=== PATIENT | male | born 1955 | race Native Hawaiian/Other Pacific Islander ===

== ENCOUNTER 2016-05-05 12:32 | Outpatient (CLI) | payer OTHER ==
[~2016-05-05 12:32] MED LIST: CHLORTHALID25 MG OR; DIVA250T2 PO; FURO20TA67 PO; HYDR4TAB12 PO; MOBIC7.5 M1 PO; NEURONTIN 100M100 MG OR; NIFE60TA5 PO; XANAX XR1 MG OR; ZANTAC 75 PO
== END 2016-05-06 02:01 | disposition home or self-care (01) ==
LOC: RAD 12:32
DX: M05.79 Rheumatoid arthritis with rheumatoid factor of multiple sites without organ or systems involvement (principal); R06.02 Shortness of breath

== ENCOUNTER 2016-08-08 12:18 | Outpatient (CLI) | payer OTHER | END 2016-08-08 13:30 | disposition home or self-care (01) | LOC: CT 12:18 | DX: R23.1 Pallor (principal); I10 Essential (primary) hypertension ==

== ENCOUNTER 2016-09-26 09:44 | Outpatient (CLI) | payer OTHER | END 2016-09-26 11:00 | disposition home or self-care (01) | LOC: CT 09:44 | DX: R91.8 Other nonspecific abnormal finding of lung field (principal); R05 Cough; N28.1 Cyst of kidney, acquired | CPT/HCPCS: 36415; 82565; 84520; Q9963 ==

== ENCOUNTER 2016-10-09 14:55 | Outpatient (CLI) | payer OTHER ==
[2016-10-09 15:29] LABS: POTASSIUM 4.5 mmol/L (3.6-5.2); SODIUM 135 mmol/L (136-145)
[2016-10-09 15:52] LABS: PLATELET COUNT 539 K/uL (142-355)
== END 2016-10-09 20:01 | disposition home or self-care (01) ==
LOC: LABW 14:55 → RESP 14:55 → LABW 20:01
PROVIDERS: Family Medicine
DX: I10 Essential (primary) hypertension (principal); J44.9 Chronic obstructive pulmonary disease, unspecified; Z86.79 Personal history of other diseases of the circulatory system; R53.83 Other fatigue; R06.02 Shortness of breath
CPT/HCPCS: 36415; 36600; 80053; 82043; 82306; 82570; 82805; 83735; 84134; 85007; 85027